=== PATIENT | female | born 1940 | race Caucasian/White ===

== ENCOUNTER → 2016-10-19 | Outpatient (CLI) | payer MEDICARE ==
[~2016-10-19] MED LIST: AMLODIPINE BESY10 MG PO; BENICAR20 MG PO; CELEBREX; CLOPIDOGREL75 MG PO; COMBIVENT INH14.7 G1 IH; FAMOTIDINE10 MG PO; FLAGYL; GABAPENTIN400 MG PO; GABAPENTIN800 MG PO; LEVAQUIN; LIPITOR; LIPITOR20 MG PO; LIPITOR40 MG PO; MIRTAZAPINE30 MG PO; MOBIC PO; NEURONTIN; NEURONTIN800 MG PO; NEXIUM; OLANZAPINE15 MG PO; PLAVIX PO; PREDNISONE PO; PRILOSEC20 MG PO; REMERON; REMERON15 MG PO; ROBAXIN 750750 MG PO; ZITHROMAX PO; ZYPREXA; simethicone
--- NOTE | ~2016-10-19 | CR63 ---
[facility] A Service of [facility] RADIOLOGY TEXT RESULTS PATIENT: RAYMOND CORTES LOCATION: [facility] : 40 UNIT #: [id number] AGE: [address]: Rosalia Lentz MD SEX: F ORDER DR: [id number] [facility] [address] [place], [place] [address] [id number] O MR#: [id number] Acc #: [id number] NAME: RAYMOND CORTES : 1940 SEX: F STUDY DATE/TIME: 10/19/2016 15:55 UNIT: [facility] ROOM: STUDY DESCRIPTION: CR Chest 2 View Attending Physician: Rosalia Lentz M.D. Referring Physician: Rosalia Lentz M.D. Ordering Physician: Rosalia Lentz M.D. Primary Care Physician: Rosalia Lentz M.D. MEDICAL IMAGING REPORT This report is preliminary unless electronic signature is present EXAM Two-view chest INDICATIONS Community-acquired pneumonia. Cough. Left lower lobe airspace opacity. TECHNIQUE/COMPARISON PA and lateral views of the chest compared to 12/09/2015. FINDINGS Heart and mediastinal contours within normal limits. There is background emphysema. There is faint left lower lobe airspace opacity. Follow up radiographs are recommended. IMPRESSION 1. Faint left lower lobe airspace opacity is likely the sequela of the patient's pneumonia. Continue followup is warranted to document resolution. 2. Emphysema. Dictated by... Fritz Cutler M.D. THIS IS AN ELECTRONICALLY VERIFIED REPORT Fritz Cutler M.D. at 10/19/2016 7:18 PM C/to TD: 10/19/2016 18:55 JOB #: [id number] MEDICAL IMAGING REPORT Page 1 of 1 COPY
== END | disposition home or self-care (01) ==
LOC: CRAD 15:48
DX: J18.9 Pneumonia, unspecified organism (principal); J43.9 Emphysema, unspecified; R91.8 Other nonspecific abnormal finding of lung field
CPT/HCPCS: 71020

== ENCOUNTER → 2016-11-21 | Outpatient (CLI) | payer MEDICARE ==
--- NOTE | ~2016-11-21 | US37 ---
[facility] A Service of [facility] RADIOLOGY TEXT RESULTS PATIENT: RAYMOND CORTES LOCATION: [facility] : 40 UNIT #: [id number] AGE: [address]: Rosalia Lentz MD SEX: F ORDER DR: [id number] [facility] [address] [place], [place] [address] [id number] O MR#: [id number] Acc #: [id number] NAME: RAYMOND CORTES : 1940 SEX: F STUDY DATE/TIME: 11/21/2016 11:16 UNIT: [facility] ROOM: STUDY DESCRIPTION: US Carotid W/Doppler Bilateral Attending Physician: Rosalia Lentz M.D. Referring Physician: Rosalia Lentz M.D. Ordering Physician: Rosalia Lentz M.D. Primary Care Physician: Rosalia Lentz M.D. MEDICAL IMAGING REPORT This report is preliminary unless electronic signature is present EXAM Bilateral carotid duplex. HISTORY Carotid atherosclerosis. FINDINGS Duplex imaging of the carotid arteries was performed. The right common carotid artery is patent. Plaque is seen in the distal common carotid artery extending into the internal and external carotid arteries. The plaque is hyperechoic and irregular. Velocity in the right common carotid is 66, internal is 104, and external is 136 cm per second. Right ICA/CCA ratio is 1.5. On the left side, the common carotid artery is patent. Mild plaque is seen in the common, internal, and external carotid arteries. Velocity in the left common carotid is 62, internal is 98, and external is 146 cm per second. Left ICA/CCA ratio is 1.5. Antegrade flow is seen in the right and left vertebral arteries. IMPRESSION Plaque with less than 50% stenosis is seen in the right and left internal carotid arteries. No hemodynamically significant stenosis is seen. Antegrade flow is seen in the right and left vertebral arteries. Dictated by... Sheldon Cesar M.D. THIS IS AN ELECTRONICALLY VERIFIED REPORT Sheldon Cesar M.D. at 11/22/2016 7:15 AM [facility] A Service of [facility] RADIOLOGY TEXT RESULTS PATIENT: RAYMOND CORTES [id number] : [birth year] UNIT #: [id number] AGE: [address]: Rosalia Lentz MD SEX: F ORDER DR: Herbert TD: 11/22/2016 06:44 JOB #: [id number] MEDICAL IMAGING REPORT Page 1 of 1 COPY
--- NOTE | ~2016-11-21 | CR63 ---
[facility] A Service of [facility] RADIOLOGY TEXT RESULTS PATIENT: RAYMOND CORTES LOCATION: [facility] : 40 UNIT #: [id number] AGE: [address]: Rosalia Lentz MD SEX: F ORDER DR: [id number] [facility] [address] [place], [place] [address] [id number] O MR#: [id number] Acc #: [id number] NAME: RAYMOND CORTES : 1940 SEX: F STUDY DATE/TIME: 11/21/2016 11:52 UNIT: [facility] ROOM: STUDY DESCRIPTION: CR Chest 2 View Attending Physician: Rosalia Lentz M.D. Referring Physician: Rosalia Lentz M.D. Ordering Physician: Rosalia Lentz M.D. Primary Care Physician: Rosalia Lentz M.D. MEDICAL IMAGING REPORT This report is preliminary unless electronic signature is present EXAM Chest 11/21/2016 [facility]. HISTORY 76-year-old woman, followup pneumonia. Cough and congestion x1 month. Long-term smoker with history of high blood pressure. FINDINGS PA and lateral chest views show normal cardiac size and configuration. Hilar structures are stable with small calcified right hilar and mediastinal nodes. The lungs are hyperinflated with some flattening of both hemidiaphragms. Interval clearing of lingula pneumonia. IMPRESSION Interval clearing of previously present lingula pneumonia. Underlying and stable COPD. Healed granulomatous disease. Dictated by... Tyler Gasca M.D. THIS IS AN ELECTRONICALLY VERIFIED REPORT Tyler Gasca M.D. at 11/22/2016 8:58 AM JESSIKA/marcelo TD: 11/22/2016 08:23 JOB #: [id number] MEDICAL IMAGING REPORT Page 1 of 1 COPY
== END | disposition home or self-care (01) ==
LOC: CNIV 10:46
DX: I65.23 Occlusion and stenosis of bilateral carotid arteries (principal); I63.8 Other cerebral infarction; J44.9 Chronic obstructive pulmonary disease, unspecified; J18.9 Pneumonia, unspecified organism
CPT/HCPCS: 71020; 93880